=== PATIENT | female | born 1930 | race Caucasian/White ===

== ENCOUNTER 2018-03-03 02:05 | Emergency (ER) | payer MEDICARE, OTHER ==
[2018-03-03] MEDS ORDERED: Zemuron 100 MG/10 ML IV ONE (02:06)
[2018-03-03] MEDS ORDERED: Sodium Chloride 0.9% 1000 ML 1,000 ML ONE ×3 (02:07→02:24)
[2018-03-03] MEDS ORDERED: Ativan 2 MG/1 ML VIAL ONE (02:12)
[2018-03-03] MEDS ORDERED: Versed 50 MG/ 10 Ml MDV ONE (02:13)
[2018-03-03] MEDS ORDERED: Sodium Chloride 0.9% 250 ML 250 ML IV ONE ×2 (02:13→02:17)
[2018-03-03] MEDS ORDERED: Sodium Chloride 0.9% 1000 ML 1,000 ML IV STA (02:15)
[2018-03-03 02:17] LABS: Granulocyte Absolute (ANC) 13.22 (1.4-6.9); Hematocrit 34.4 % (35-47); Mean Cell Volume 102.4 fl (78-100); Mean Corpuscular Hemoglobin 32.7 pg (26-32); Mean Platelet Volume 11.9 fl (6-9.5); Platelet Count 172 K/mm3 (150-450); Red Blood Count 3.36 M/mm3 (4.1-5.4); Red Cell Distribution Width 13.8 % (11.5-14.0); White Blood Count 15.4 K/mm3 (4.0-10.5)
[2018-03-03 02:33] LABS: INR 2.01 (0.8-3.0)
[2018-03-03 02:40] LABS: ALBUMIN 3.8 g/dL (3.5-5.0); ANION GAP 14.9 MEQ/L (5-15); BILIRUBIN,TOTAL 0.8 mg/dL (0.2-1.3); Calcium 8.7 mg/dL (8.4-10.2); Creatinine 1 1.64 mg/dL (0.52-1.04); Potassium 5.5 mmol/L (3.5-5.1); TROPONIN 0.016 ng/mL (0.000-0.034); Total Protein 6.7 g/dL (6.3-8.2)
--- NOTE | 2018-03-03 02:43 | ERPHSYRPT ---
- History of Present Illness Time Seen by Provider: 03/03/18 02:34 Physician History: FAMILY FOUND PATIENT SLEEPING IN ROCKING CHAIR WITH SHALLOW RESPIRATIONS, COOL EXTREMITIES UNABLE TO AROUSE AT 1AM,THEN ONSET OF CPR. EMS FOUND PATIENT PULSELESS, WITH CPR CONTINUED, PATIENT DEVELOPED A PULSE WITH SHALLOW RESPIRATIONS. NO MEDICATIONS WERE GIVEN PER EMS ENROUTE TO EMERGENCY ROOM. PATIENT WITH A HISTORY OF CONGESTIVE HEART FAILURE AND HYPERTENSION WITH A PACEMAKER. Timing/Duration: today Activities at Onset: none Severity of Pain-Max: none Severity of Pain-Current: none Modifying Factors: Improves With: other (FOUND UNRESPONSIVE SITTING IN ROCKING CHAIR) Nitro Today/Relief: no nitro taken today Aspirin Treatment Today: no aspirin today Prior Chest Pain/Cardiac Workup: stress test (3 WEEKS AGO) - Review of Systems Constitutional: No Fever, No Chills Eyes: No Symptoms Ears, Nose, & Throat: No Symptoms, Throat Swelling Respiratory: No Cough, No Dyspnea Cardiac: No Symptoms, No Chest Pain, No Edema, No Syncope Abdominal/Gastrointestinal: No Symptoms, No Abdominal Pain, No Nausea, No Vomiting, No Diarrhea Genitourinary Symptoms: No Symptoms, No Dysuria Musculoskeletal: No Back Pain, No Neck Pain Skin: No Rash Neurological: Other (UNRESPONSIVE, HISTORY GIVEN BY FAMILY), No Dizziness, No Focal Weakness, No Sensory Changes Psychological: No Symptoms Endocrine: No Symptoms All Other Systems: Unable due to condition (POST CARDIAC ARREST) - Nursing Vital Signs Nursing Vital Signs: Initial Vital Signs O2 Sat by Pulse Oximetry 97 03/03/18 03:12 - Physical Exam General Appearance: other (ARRIVED TO EMERGENCY WITH HYPOCAPNIC RESPIRATIONS, UNRESPONSIVE TO PAINFUL STIMULUS) Eye Exam: other (PUPILS 4MM, NONREACTIVE) Ears, Nose, Throat Exam: normal ENT inspection Neck Exam: normal inspection Respiratory Exam: other (HYPOCAPIC RESPIRATIONS) Cardiovascular Exam: regular rate/rhythm Gastrointestinal/Abdomen Exam: soft, normal bowel sounds, other (NO PALPABLE MASSES) Back Exam: normal inspection Extremity Exam: normal inspection, pedal edema (+1 PITTING EDEMA) Neurologic Exam: other (UNRESPONSIVE) Skin Exam: normal color, warm SpO2: 97 Oxygen Delivery: Non-rebreather - Course EKG Interpreted by Me: RATE, Sinus Alex, A-fib, NORMAL AXIS - Radiology Exams Chest X-ray Interpretation: Interpreted by me (ENDOTRACHEAL TUBE 1CM ABOVE LEVEL OF SAMI) - CT Exams Head CT Interpretation: Tele-radiologist Report (THERE IS A 4.1 X 7 X 5.7CM ACUTE PARENCHYMAL HEMORRHAGE EPICENTERED IN THE LEFT PARIETAL LOBE WITH EXTENSIVE SUBARACHNOID HEMORRHAGE SEEN ADJACENT TO THE FAX WELL WITHIN THE SKULL BASE AND LEFT SYLVIAN FISSURE. THERE IS EXTENSIVE INTRAVENTRICULAR EXTENSION OF HEMORRHAGE INTO THE LATERAL , THIRD AND 4TH VENTRICLES) Ordered Tests: Active Orders 24 hr Category Date Time Status [employer]inter[employer] Devil STAT Care 03/03/18 02:15 Active EKG-ER Only STAT Care 03/03/18 02:15 Active IV Insertion STAT Care 03/03/18 02:15 Active Pulse Oximetry (ED) STAT Care 03/03/18 02:15 Active CHEST 1 VIEW (PORTABLE) Stat Exams 03/03/18 02:15 Ordered CHEST 1 VIEW (PORTABLE) Stat Exams 03/03/18 02:15 Taken HEAD WITHOUT CONTRAST [CT] Stat Exams 03/03/18 02:17 Taken ARTERIAL BLOOD GASES Stat Lab 03/03/18 02:32 Ordered CBC W DIFF Stat Lab 03/03/18 02:12 Completed CMP Stat Lab 03/03/18 02:12 Completed Lactic Acid Stat Lab 03/03/18 02:32 Ordered Manual Differential NC Stat Lab 03/03/18 02:12 Completed PROTIME WITH INR Stat Lab 03/03/18 02:12 Completed TROPONIN Stat Lab 03/03/18 02:12 Completed UA W/RFX UR CULTURE Stat Lab 03/03/18 02:33 Uncollected Urine Triage Profile Stat Lab 03/03/18 02:33 Uncollected Medication Summary Discontinued Medications Generic Name Dose Route Start Last Admin Trade Name Freq PRN Reason Stop Dose Admin Hydralazine HCl 5 mg 03/03/18 03:12 Apresoline 20 Mg/Ml Inj IV 03/03/18 03:13 STAT ONE Sodium Chloride Confirm 03/03/18 02:07 Sodium Chloride 0.9% 1000 Ml Administered 03/03/18 02:08 Dose 1,000 mls @ ud .ROUTE .STK-MED ONE Sodium Chloride 1,000 mls @ 999 mls/hr 03/03/18 02:15 Sodium Chloride 0.9% 1000 Ml IV 03/03/18 03:15 .Q1H1M STA Sodium Chloride Confirm 03/03/18 02:13 Sodium Chloride 0.9% 250 Ml Administered 03/03/18 02:14 Dose 250 mls @ ud IV .STK-MED ONE Sodium Chloride Confirm 03/03/18 02:17 Sodium Chloride 0.9% 250 Ml Administered 03/03/18 02:18 Dose 250 mls @ ud IV .STK-MED ONE Sodium Chloride Confirm 03/03/18 02:21 Sodium Chloride 0.9% 1000 Ml Administered 03/03/18 02:22 Dose 1,000 mls @ ud .ROUTE .STK-MED ONE Sodium Chloride Confirm 03/03/18 02:23 Sodium Chloride 0.45% 1000 Ml Administered 03/03/18 02:24 Dose 1,000 mls @ ud IV .STK-MED ONE Sodium Chloride Confirm 03/03/18 02:24 Sodium Chloride 0.9% 1000 Ml Administered 03/03/18 02:25 Dose 1,000 mls @ ud .ROUTE .STK-MED ONE Lorazepam Confirm 03/03/18 02:12 Ativan 2 Mg/1 Ml Vial Administered 03/03/18 02:13 Dose 4 mg .ROUTE .STK-MED ONE Midazolam HCl Confirm 03/03/18 02:13 Versed 50 Mg/ 10 Ml Mdv Administered 03/03/18 02:14 Dose 50 mg .ROUTE .STK-MED ONE Lab/Rad Data: Laboratory Result Diagrams 03/03/18 02:12 03/03/18 02:12 Laboratory Results 03/03/18 03/03/18 03/03/18 Range/Units 02:12 02:12 02:12 WBC 15.4 H (4.0-10.5) K/mm3 RBC 3.36 L (4.1-5.4) M/mm3 Hgb 11.0 L (12.0-16.0) gm/dl Hct 34.4 L (35-47) % MCV 102.4 H (78-100) fl MCH 32.7 H (26-32) pg MCHC 32.0 (32-36) g/dl RDW 13.8 (11.5-14.0) % Plt Count 172 (150-450) K/mm3 MPV 11.9 H (6-9.5) fl Absolute Granulocytes 13.22 H (1.4-6.9) Segmented Neutrophils 77 H (36.0-66.0) % Band Neutrophils 2 (0.0-2.0) % Lymphocytes (Manual) 10 L (24-44) % Monocytes (Manual) 10 (0.0-12.0) % Basophils (Manual) 1 (0.0-1.0) % Platelet Estimate NORMAL (NORMAL) RBC Morphology NORMAL PT 23.6 H (9.95-12.35) SECONDS INR 2.01 (0.8-3.0) Sodium 138 (137-145) mmol/L Potassium 5.5 H (3.5-5.1) mmol/L Chloride 106 (98-107) mmol/L Carbon Dioxide 23 (22-30) mmol/L Anion Gap 14.9 (5-15) MEQ/L BUN 35 H (7-17) mg/dL Creatinine 1.64 H (0.52-1.04) mg/dL Estimated GFR 31.5 ML/MIN Glucose 154 H (74-106) mg/dL Calcium 8.7 (8.4-10.2) mg/dL Total Bilirubin 0.80 (0.2-1.3) mg/dL AST 39 H (14-36) U/L ALT 21 (0-35) U/L Alkaline Phosphatase 90 (38-126) U/L Troponin I 0.016 (0.000-0.034) ng/mL Serum Total Protein 6.7 (6.3-8.2) g/dL Albumin 3.8 (3.5-5.0) g/dL - Progress Progress: unchanged Air Movement: good Progress Note: 03/03/18 03:23 AWAKE INTUBATION UNABLE TO PASS SIZE 7.5 OR 7 ENDOTRACHEAL TUBE THROUGH CHORDS , PASSED SIZE 6.5 ENDOTRACHEAL TUBE THROUGH CHORDS, TUBE FIXED AT 23 CM, BREATH SOUNDS EQUAL, PLACED ONTO VENTILATOR TV 600 IMV 14 FIO2 100%, ADMINISTERED ATIVAN 4MG IV X 2 DOSES, FOLLOWED BY VERSED INFUSION 6MG/HR, ZEMURON 20MG IV, HYDRALAZINE 5MG IV, NORMAL SALINE 1 LITER BOLUS, THEN 50ML/HR INITIAL BP 202/104 IMPROVED TO 168/73. DISCUSSSED WITH PATIENT'S SON IN DETAIL , REQUEST PATIENT TO BE A FULL CODE. Discussed with DrBrinda: Other (DISCUSSED WITH DR ARMENDARIZ AT 0325 ACCEPTS TRANSFER TO [facility]IA [facility].) - Departure Time of Disposition: 03:35 Departure Disposition: Transfer Clinical Impression: ACUTE INTRACRANIAL HEMORRHAGE, POST CARDIAC ARREST Condition: Critical Critical Care Time: Yes Critical Care Time(excluding separately billable procedures): ___ minutes (50) Referrals: NOE BURGOS [Primary Care Provider] -
[2018-03-03 02:53] LABS: BAND 2 % (0.0-2.0); Basophil 1 % (0.0-1.0); Lymphocytes 10 % (24-44); Monocyte 10 % (0.0-12.0); Neutrophils 77 % (36.0-66.0); Total Cells Counted 100
[2018-03-03 02:54] LABS: Platelet Estimate NORMAL (NORMAL)
[2018-03-03] MEDS ORDERED: APRESOLINE 20 MG/ML INJ IV ONE (03:12)
[2018-03-03 03:13] VITALS: O2SAT 97
[2018-03-03] MEDS ORDERED: APRESOLINE 20 MG/ML INJ ONE (03:13)
[2018-03-03 03:16] LABS: A-aADO2 156; ABG HEMOGLOBIN 10.7; ABG POTASSIUM 4.8 (3.5-5.1); ABG SITE RIGHT BRACHIAL; ARTERIAL BLD GAS TIDAL VOLUME 600 cc; ARTERIAL BLOOD GAS BASE EXCESS -1.2 (-2.0-2.0); ARTERIAL BLOOD GAS FIO2 100 %; ARTERIAL BLOOD GAS PCO2 32 mmHg (35-45); ARTERIAL BLOOD GAS PEEP 3 cmH2O; ARTERIAL BLOOD GAS PO2 517 mmHg (75-100); ARTERIAL BLOOD GAS VENT MODE A/C; ARTERIAL BLOOD GAS VENT RATE 14 /MIN; ARTERIAL BLOOD GAS pH 7.45 (7.35-7.45); CARBOXYHEMOGLOBIN 1.7 % THgb (0.0-6.9); HCO3- 22.2 (22-28); HGB O2 SAT 97.6 g/dF (94-100); Methhemoglobin 0.7 % (1.4-1.5); paO2 pAO1 0.77
[2018-03-03 03:20] LABS: A-aADO2 289; ABG HEMOGLOBIN 11.5; ABG POTASSIUM 5.3 (3.5-5.1); ABG SITE RIGHT BRACHIAL; ARTERIAL BLD GAS O2 SATURATION 99.6 % (95-100); ARTERIAL BLOOD GAS BASE EXCESS -2.7 (-2.0-2.0); ARTERIAL BLOOD GAS FIO2 100 %; ARTERIAL BLOOD GAS PCO2 40 mmHg (35-45); ARTERIAL BLOOD GAS PO2 374 mmHg (75-100); ARTERIAL BLOOD GAS pH 7.36 (7.35-7.45); CARBOXYHEMOGLOBIN 2.3 % THgb (0.0-6.9); HCO3- 22.6 (22-28); HGB O2 SAT 96.1 g/dF (94-100); Methhemoglobin 1.2 % (1.4-1.5); paO2 pAO1 0.56
[2018-03-03 04:05] LABS: Appearance CLEAR (CLEAR); Bilirubin NEGATIVE (NEGATIVE); Blood NEGATIVE Ery/ul (0-5); Glucose 50 mg/dL (NEGATIVE); Ketones NEGATIVE (NEGATIVE); Leukocyte Esterase NEGATIVE (NEGATIVE); Nitrite NEGATIVE (NEGATIVE); Protein,Urine Dip 30 (Negative); Specific Gravity 1.014 (1.005-1.025); Urobilinogen NEGATIVE mg/dL (0-1)
[2018-03-03 04:12] LABS: Amphetamine,Urine NEGATIVE (NEGATIVE); Barbiturate,Urine NEGATIVE (NEGATIVE); Benzodiazepine,Urine NEGATIVE (NEGATIVE); Cocaine,Urine NEGATIVE (NEGATIVE); Methadone,Urine NEGATIVE (NEGATIVE); PCP,Urine NEGATIVE (NEGATIVE); THC,Urine NEGATIVE (NEGATIVE)
[2018-03-03 04:15] LABS: Opiate,Urine POSITIVE (NEGATIVE)
--- NOTE | 2018-03-03 07:09 | XRAY ---
Indication: ET tube placement. Comparison: August 31, 2010. Portable chest demonstrates new endotracheal tube tip 1.5 cm above the hedy. Lungs are clear. Stable cardiomegaly with new left-sided dual-lead pacemaker. Bony thorax intact. Impression: Endotracheal tube tip 1.5 cm above hedy. Stable cardiomegaly. No acute cardiopulmonary abnormalities.
--- NOTE | 2018-03-03 07:14 | XRAY ---
Indication: Cardiac arrest. Possible stroke. Multiple contiguous axial images obtained through the head without contrast. Comparison: None There is 4.1 x 7.0 x 5.7 cm acute parenchymal hemorrhage centered in the left posterior parietal/occipital lobe with diffuse bilateral acute ventricular and subarachnoid hemorrhage. Diffuse transependymal edema, mass effect, and subfalcine herniation to the right approximately 1.8 cm. Bony calvarium intact. Mild mucosal thickening of the right ethmoid sinus. Mastoid air cells are clear. Impression: Large left posterior parietal/occipital acute parenchymal hemorrhage with also diffuse subarachnoid and ventricular hemorrhage and midline shifting as detailed. Comment: Preliminary interpretation was made by [facility]. No discrepancy. CTDI 58.76
== END 2018-03-03 03:35 | disposition short-term general hospital (02) ==
LOC: ED 02:05
DX: I62.9 Nontraumatic intracranial hemorrhage, unspecified (principal); I46.8 Cardiac arrest due to other underlying condition; I50.9 Heart failure, unspecified; I10 Essential (primary) hypertension; Z95.0 Presence of cardiac pacemaker
CPT/HCPCS: 31500; 36000; 36415; 36600; 70450; 71045; 80053; 80307; 81001; 82375; 82803; 83605; 84484; 85025; 85610; 93005; 93041; 94002; 94799; 99285; 99291; 99292; J0360; J2060; J2250